=== PATIENT | female | born 1995 | race Hispanic/Latino ===

== ENCOUNTER 2018-09-04 05:03 | Inpatient (IN) | payer MEDICAID | END 2018-09-05 16:00 | disposition home or self-care (01) | LOC: EDH 05:03 → LDH 05:09 → WSH 12:00 ==

== ENCOUNTER 2023-03-21 01:36 | Inpatient (IN) | payer MEDICAID, OTHER ==
[~2023-03-21] VITALS: Ht 167.6 cm; Wt 59.0 kg
[2023-03-21 02:12] LABS: APPEARANCE,URINE CLEAR (CLEAR); BILIRUBIN,URINE NEGATIVE (NEGATIVE); COLOR,URINE COLORLESS (YELLOW); GLUCOSE, URINE (UA) NEGATIVE (NEGATIVE); KETONES,URINE NEGATIVE (NEGATIVE); LEUKOCYTE ESTERASE ,URINE NEGATIVE Leu/uL (NEGATIVE); NITRATE,URINE NEGATIVE (NEGATIVE); OCCULT BLOOD,URINE SMALL (NEGATIVE); PROTEIN,URINE NEGATIVE (NEGATIVE); UROBILINOGEN,URINE 0.2 mg/dL (0.2-1.0)
[2023-03-21 02:27] LABS: ADD UA MICROSCOPIC YES
[2023-03-21 02:30] LABS: MUCUS,URINE RARE LPF (None Seen); RBC,URINE 0-1 /HPF (0-1); SQUAMOUS EPITHELIAL CELL,UR RARE /HPF (0-2)
[2023-03-21] MEDS ORDERED: OXYTOCIN-LR 30 UNITS/500ML 500 ML IV SCH ×2 (02:30→08:30)
[2023-03-21] MEDS ORDERED: LACTATED RINGERS 1000ML 1,000 ML IV PRN (02:30)
[2023-03-21 02:37] LABS: AMPHET/METH SCREEN,URINE NEGATIVE (NEGATIVE); BARBITURATE SCREEN, URINE NEGATIVE (NEGATIVE); BENZODIAZEPINES SCREEN,URINE NEGATIVE (NEGATIVE); CANNABINOID SCREEN,URINE POSITIVE (NEGATIVE); COCAINE SCREEN,URINE NEGATIVE (NEGATIVE); OPIATE SCREEN,URINE NEGATIVE (NEGATIVE); PHENCYCLIDINE SCREEN,URINE NEGATIVE (NEGATIVE)
[2023-03-21] MEDS ORDERED: PROMETHAZINE HCL 25 MG/ML 1ML AMPULE IM PRN (03:00)
[2023-03-21] MEDS ORDERED: MEPERIDINE-PF 50 MG/ML SYG IVP PRN (03:00)
[2023-03-21] MEDS ORDERED: AMPICILLIN 2GM+NS 100ML 100 ML IV SCH (03:00)
[2023-03-21 03:37] LABS: HEMATOCRIT 21.6 % (36-48); MEAN CORPUSCULAR HEMOGLOBIN 18.3 pg (27.0-33.0); MEAN CORPUSCULAR HGB CONC 28.7 g/dL (32.0-36.0); MEAN CORPUSCULAR VOLUME 63.7 fL (79-99); NUCLEATED RED BLOOD CELLS 0.3 % (0.0-0.19); PLATELET COUNT (AUTO) 281 K/uL (130-400); RED BLOOD CELL COUNT(AUTO) 3.39 MIL/uL (4.00-5.50); RED CELL DISTRIBUTION WIDTH 18.2 % (11.0-15.5); WHITE BLOOD COUNT (AUTO) 12.1 K/uL (4.8-10.8)
[2023-03-21 04:13] LABS: HIV 1&2 ANTIBODY Non-Reactive (Negative); HIV-1 p24 Antigen Non-Reactive (Negative)
[2023-03-21] MEDS: AMPICILLIN 1GM+NS 50ML 50 ML IV SCH (06:55)
[2023-03-21 08:18] LABS: RAPID PLASMA REAGIN NONREACTIVE (NONREACTIVE)
[2023-03-21] MEDS ORDERED: LIDOCAINE HCL 1% 20 ML VIAL ONE (08:38)
[2023-03-21] MEDS ORDERED: MISOPROSTOL 200 MCG TABLET ONE (08:38)
[2023-03-21] MEDS ORDERED: METHYLERGONOVINE MALEATE 0.2 MG/1 ML ML ONE (08:38)
[2023-03-21] MEDS ORDERED: ONDANSETRON 4MG INJ IVP ONE (08:45)
[2023-03-21] MEDS ORDERED: MEPERIDINE-PF 50 MG/ML SYG IVP ONE (08:45)
[2023-03-21] MEDS ORDERED: ACETAMINOPHEN 325 MG TAB PO PRN (10:00)
[2023-03-21] MEDS ORDERED: LANOLIN 30GM OINTMENT TP PRN (10:00)
[2023-03-21] MEDS ORDERED: DIPH,PERTUSS(ACELL),TET VAC/PF 0.5 ML VIAL IM PRN (10:00)
[2023-03-21] MEDS ORDERED: WITCH HAZEL 1 PAD TP PRN (10:00)
[2023-03-21] MEDS ORDERED: MEASLES/MUMPS/RUBELLA VACCINE, LIVE 0.5 ML/VIAL SQ PRN (10:00)
[2023-03-21] MEDS ORDERED: BENZOCAINE/LANOLIN/ALOE VERA 60 ML AEROSOL TP PRN (10:00)
[2023-03-21] MEDS ORDERED: ACETAMINOPHEN WITH CODEINE 1 TAB TAB PO PRN (10:00)
[2023-03-21 11:24] LABS: HEMATOCRIT 22.2 % (36-48)
[2023-03-21] MEDS: IBUPROFEN 600 MG TABLET PO PRN ×2 (14:04→21:03)
[2023-03-21 19:40] VITALS: BP 134/77; PULSE 65; RESP 20
[2023-03-21] MEDS: DOCUSATE SODIUM 100 MG CAP PO SCH (21:02)
[2023-03-21 23:36] VITALS: BP 122/78; PULSE 76; RESP 20
[2023-03-22] MEDS: AMPICILLIN 1GM+NS 50ML 50 ML IV SCH (03:00)
[2023-03-22 03:20] VITALS: BP 132/82; PULSE 68; RESP 18
[2023-03-22 07:40] VITALS: BP 126/78; PULSE 64; RESP 18
[2023-03-22] MEDS: DOCUSATE SODIUM 100 MG CAP PO SCH (08:53)
[2023-03-22] MEDS: IBUPROFEN 600 MG TABLET PO PRN (08:54)
[2023-03-22 09:52] LABS: MEAN CORPUSCULAR HEMOGLOBIN 18.4 pg (27.0-33.0); MEAN CORPUSCULAR HGB CONC 28.6 g/dL (32.0-36.0); MEAN CORPUSCULAR VOLUME 64.4 fL (79-99); PLATELET COUNT (AUTO) 279 K/uL (130-400); RED CELL DISTRIBUTION WIDTH 17.8 % (11.0-15.5); WHITE BLOOD COUNT (AUTO) 15.5 K/uL (4.8-10.8)
[2023-03-22 09:55] LABS: HEMATOCRIT 20.6 % (36-48)
[2023-03-22 10:02] LABS: BASOPHILS # (AUTO) 0.03 K/uL (0.00-0.20); BASOPHILS % (AUTO) 0.2 % (0.0-5.0); EOSINOPHILS # (AUTO) 0.02 K/uL (0.00-0.70); EOSINOPHILS % (AUTO) 0.1 % (0.0-8.0); LYMPHOCYTES # (AUTO) 2.4 K/uL (1.0-4.8); LYMPHOCYTES % (AUTO) 15.9 % (21.0-51.0); MONOCYTES # (AUTO) 0.6 K/uL (0.1-1.0); MONOCYTES % (AUTO) 3.8 % (3.0-13.0); NEUTROPHILS # (AUTO) 12.2 K/uL (1.8-7.7); NEUTROPHILS % (AUTO) 79.3 % (40.0-77.0)
[2023-03-22 11:55] VITALS: BP 113/67; PULSE 78; RESP 18
== END 2023-03-22 15:15 | disposition home or self-care (01) | DRG 806 ==
LOC: EDH 01:36 → LDH 01:49 → OBSVTOIN 01:49 → WSH 18:50
PROVIDERS: ADMIT Obstetrics & Gynecology; ATTEND Obstetrics & Gynecology
PROC: 10E0XZZ Delivery of Products of Conception, External Approach (ICD-10-PCS; principal; 2023-03-21)
DX: O69.81X0 Labor and delivery complicated by cord around neck, without compression, not applicable or unspecified (principal); O99.324 Drug use complicating childbirth; Z37.0 Single live birth; F12.90 Cannabis use, unspecified, uncomplicated; Z3A.37 37 weeks gestation of pregnancy
CPT/HCPCS: 36415; 76805; 80305; 81001; 85014; 85018; 85025; 85027; 86592; 86701; 86850; 86900; 86901; 86923; 87340; 87390; A4351; G0378; J0290; J2175; J2210; J2550